=== PATIENT | female | born 1985 | race Two or more races ===

== ENCOUNTER 2018-01-24 09:35 | Emergency (ER) | payer SELFPAY ==
--- NOTE | 2018-01-24 09:45 | DR.SOBA ---
HPI - Time Seen Time seen: 09:40 - Complaints Chief Complaint Doctors Comments: SOB x 2 days. She has non-productive cough but no fever. There is right sided pleuritic chest pain. There is no anterior or pressure type chest pain. She had a dilatation and curretage done 3 days ago. There is only residual vaginal spotting now. - Reviewed Nurses Notes Reviewed: Yes - Source History Provided: Patient, Family Member, Friend - Context Onset:: At Rest PE Risk Factors:: Recent Surgery Currently on:: Neither Prehospital Care:: None - Modifying Factors Worsens:: Nothing - Associated Signs and Symptoms Associated Signs and Symptoms: Cough - If Chest Pain Quality: Sharp Location: Right Lower Chest - If Cough Cough: Nonproductive ROS - Review of Systems Constitutional: No Symptoms Reported Eyes: No Symptoms Reported ENTM: No Symptoms Reported Respiratoy: Non-Productive Cough, Short of Breath Cardiovascular: No Symptoms Reported Gastrointestinal/Abdominal: No Symptoms Reported Genitourinary: No Symptoms Reported Neurological: No Symptoms Reported Musculoskeletal: No Symptoms Reported Integumentary: No Symptoms Reported Hematologic/Lymphatic: No Symptoms Reported Endocrine: No Symptoms Reported Psychiatric: No Symptoms Reported All Other Systems: Reviewed and Negative PE - Vital Signs Vitals: Temperature 99.8 F Pulse Rate [Apical] 124 Pulse Rate 127 Respiratory Rate 36 Blood Pressure [Left Arm] 102/59 Blood Pressure 106/74 O2 Sat by Pulse Oximetry 93 - General Limitations: No Limitations General Appearance: Alert, In No Apparent Distress - Head Head Exam: Normal Inspection - Eyes Eye exam: Normal Appearance, PERRL, EOMI - ENT ENT Exam: Normal Exam - Neck Neck Exam: Normal Inspection - Chest Chest Inspection: Normal Inspection, Symmetric Chest Wall Rise - Respiratory Respiratory Exam: Normal Lung Sounds Bilat - Cardiovascular Cardiovascular Exam: Tachycardia, Normal Heart Sounds, +S1, +S2 - Abdominal Exam Abdominal Exam: Normal Inspection, Normal Bowel Sounds, Soft, Distention ( moderate). negative: Tenderness, Guarding, Rebound, Rigidity, Dimnished Bowel Sounds, Hyperactive Bowel Sounds, Hypoactive Bowel Sounds, Organomegaly, Trauma , Incision, Ascites, Hernia - Extremities Extremities Exam: Normal Inspection, Full ROM, Normal Capillary Refill. negative: Tenderness, Edema, Joint Swelling, Calf Tenderness - Back Back Exam: Normal Inspection - Neurologic Neurological Exam: Alert - Psychiatric Psychiatric Exam: Normal Affect, Normal Mood - Skin Skin Exam: Rash (radha-umbilical) ROR - Labs Reviewed Result Diagrams: 01/24/18 09:40 01/24/18 09:40 Laboratory: WBC 4.2 X10^3/uL (3.6-10.0) 01/24/18 09:40 RBC 2.98 X10^6/uL (3.5-5.4) L 01/24/18 09:40 Hgb 10.1 g/dL (12.0-16.0) L 01/24/18 09:40 Hct 29.2 % (36.0-47.0) L 01/24/18 09:40 MCV 98.1 fL (80.0-100.0) 01/24/18 09:40 MCH 33.8 pg (27.0-34.0) 01/24/18 09:40 MCHC 34.5 g/dL (33.0-35.0) 01/24/18 09:40 RDW 14.5 % (11.6-16.5) 01/24/18 09:40 Plt Count 192 X10^3/uL (150.0-450.0) 01/24/18 09:40 Plt Count Comment Adequate (ADEQUATE) 01/24/18 09:40 MPV 8.0 fL (7.4-11.0) 01/24/18 09:40 Neut % (Auto) 92.2 % (42.0-75.0) H 01/24/18 09:40 Lymph % (Auto) 4.2 % (21.0-51.0) L 01/24/18 09:40 [place] % (Auto) 3.4 % (0.0-13.0) 01/24/18 09:40 Eos % (Auto) 0.1 % (0.9-2.9) L 01/24/18 09:40 Baso % (Auto) 0.1 % (0.2-1.0) L 01/24/18 09:40 Neut # (Auto) 3.9 x10^3/uL (2.2-4.8) 01/24/18 09:40 Lymph # (Auto) 0.2 X10^3/uL (1.3-2.9) L 01/24/18 09:40 [place] # (Auto) 0.1 x10^3/uL (0.3-0.8) L 01/24/18 09:40 Eos # (Auto) 0.0 x10^3/uL (0.0-0.2) 01/24/18 09:40 Baso # (Auto) 0.0 X10^3/uL (0.0-0.1) 01/24/18 09:40 Absolute Nucleated RBC 0.2 /100WBC 01/24/18 09:40 Total Counted 100 01/24/18 09:40 Neutrophils % (Manual) 60 % (39-76) 01/24/18 09:40 Band Neutrophils % 22 % (0-10) H 01/24/18 09:40 Lymphocytes % (Manual) 10 % (13-43) L 01/24/18 09:40 Monocytes % (Manual) 6 % (4-9) 01/24/18 09:40 Atypical Lymphocytes 2 01/24/18 09:40 Plt Morphology Comment Normal (NORMAL) 01/24/18 09:40 RBC Morphology Normal (NORMAL) 01/24/18 09:40 D-Dimer 3050 ng/mL (0-400) H* 01/24/18 09:40 Sample Site Rr 01/24/18 10:40 ABG pH 7.260 (7.35-7.45) L 01/24/18 10:40 ABG pCO2 31.0 mmHg (35.0-45.0) L 01/24/18 10:40 ABG pO2 68.0 mmHg (80.0-100.0) L 01/24/18 10:40 ABG HCO3 13.9 mmol/L (22-26) L* 01/24/18 10:40 ABG O2 Saturation 90.0 % (90-100) 01/24/18 10:40 ABG Base Excess -12.0 mmol/L (-2.0-2.0) L 01/24/18 10:40 Alejandro Test Pos 01/24/18 10:40 A-a Gradient 93.0 mmHg 01/24/18 10:40 FiO2 28.000 01/24/18 10:40 Blood Gas Comments Pt kady well. cdn 01/24/18 10:40 Sodium 128 mmol/L (136-145) L 01/24/18 09:40 Corrected Sodium TNP 01/24/18 09:40 Potassium 3.8 mmol/L (3.5-5.1) 01/24/18 09:40 Chloride 93 mmol/L (98-107) L 01/24/18 09:40 Carbon Dioxide 15.2 mmol/L (21-32) L 01/24/18 09:40 BUN 97 mg/dL (7-18) H 01/24/18 09:40 Creatinine 5.48 mg/dL (0.55-1.02) H 01/24/18 09:40 Est GFR (MDRD) Af Amer 11 (>60) L 01/24/18 09:40 Est GFR (MDRD) Non-Af 9 (>60) L 01/24/18 09:40 Glucose 94 mg/dL (65-99) 01/24/18 09:40 Lactic Acid 2.2 mmol/L (0.4-2.0) H 01/24/18 10:30 Calcium 7.6 mg/dL (8.5-10.1) L 01/24/18 09:40 Corrected Calcium 9.5 mg/dL (8.5-10.1) 01/24/18 09:40 Total Bilirubin 3.30 mg/dL (0.2-1.0) H 01/24/18 09:40 AST 129 Units/L (15-37) H 01/24/18 09:40 ALT 35 Units/L (12-78) 01/24/18 09:40 Alkaline Phosphatase 92 Units/L (46-116) 01/24/18 09:40 Creatine Kinase 709 Units/L (26-192) H 01/24/18 09:40 CK-MB (CK-2) 15.1 ng/mL (0-4.0) H* 01/24/18 09:40 CK/CKMB % Calc 2.1 % (<4) 01/24/18 09:40 Troponin I < 0.02 ng/mL (0-1.5) 01/24/18 09:40 Total Protein 6.3 g/dL (6.4-8.2) L 01/24/18 09:40 Albumin 1.6 g/dL (3.4-5.0) L 01/24/18 09:40 Globulin 4.7 g/dL (2.5-4.5) H 01/24/18 09:40 Albumin/Globulin Ratio 0.3 Ratio (1.1-2.1) L 01/24/18 09:40 Specimen Type Catherized urine 01/24/18 10:40 Urine Color [place] (YELLOW) 01/24/18 10:40 Urine Appearance Cloudy (CLEAR) 01/24/18 10:40 Urine pH 5.0 (5.0 - 8.0) 01/24/18 10:40 Ur Specific [place] 1.020 (1.000-1.030) 01/24/18 10:40 Urine Protein 2+ (NEGATIVE) 01/24/18 10:40 Urine Glucose (UA) Negative (NEGATIVE) 01/24/18 10:40 Urine Ketones 1+ (NEGATIVE) 01/24/18 10:40 Urine Occult Blood 3+ (NEGATIVE) 01/24/18 10:40 Urine Nitrite Positive (NEGATIVE) 01/24/18 10:40 Urine Bilirubin 2+ (NEGATIVE) 01/24/18 10:40 Urine Urobilinogen 2+ (NORMAL) 01/24/18 10:40 Ur Leukocyte Esterase 1+ (NEGATIVE) 01/24/18 10:40 - EKG Rate: 124 [place]: Normal Rhythm: ST Block: None Hypertrophy: None ST: Normal - Diagnosis Discharge Problem: ARF (acute renal failure) - Discharge Plan Condition: Stable - Follow ups/Referrals Follow ups/Referrals: Juan Jacobson [Primary Care Provider] - 3 days - Instructions
[2018-01-24] MEDS ORDERED: XOPENEX 1.25 MG/3 ML NEBULE NEB ONE ×2 (09:48→09:57)
[2018-01-24 09:53] VITALS: BMI 22.3
[2018-01-24 09:59] LABS: BASOPHILS % (AUTO) 0.1 % (0.2-1.0); EOSINOPHILS % (AUTO) 0.1 % (0.9-2.9); HEMATOCRIT 29.2 % (36.0-47.0); HEMOGLOBIN 10.1 g/dL (12.0-16.0); LYMPHOCYTES # (AUTO) 0.2 X10^3/uL (1.3-2.9); LYMPHOCYTES % (AUTO) 4.2 % (21.0-51.0); MEAN CORPUSCULAR HEMOGLOBIN 33.8 pg (27.0-34.0); MEAN CORPUSCULAR HGB CONC 34.5 g/dL (33.0-35.0); MEAN CORPUSCULAR VOLUME 98.1 fL (80.0-100.0); MONOCYTES # (AUTO) 0.1 x10^3/uL (0.3-0.8); MONOCYTES % (AUTO) 3.4 % (0.0-13.0); NEUTROPHILS # (AUTO) 3.9 x10^3/uL (2.2-4.8); NEUTROPHILS % (AUTO) 92.2 % (42.0-75.0); PLATELET COUNT 192 X10^3/uL (150.0-450.0); RED BLOOD COUNT 2.98 X10^6/uL (3.5-5.4); RED CELL DISTRIBUTION WIDTH 14.5 % (11.6-16.5); WHITE BLOOD COUNT 4.2 X10^3/uL (3.6-10.0)
[2018-01-24 10:18] LABS: BAND NEUTROPHILS % 22 % (0-10)
[2018-01-24 10:19] LABS: PLATELET MORPHOLOGY COMMENT NORMAL (NORMAL)
[2018-01-24] MEDS ORDERED: LOVENOX INJ 40 MG SYR SC ONE (10:39)
[2018-01-24 10:44] LABS: ABG HCO3 13.9 mmol/L (22-26)
[2018-01-24 10:45] LABS: ABG ALLEN TEST POS
[2018-01-24 10:47] LABS: BILIRUBIN,URINE 2+ (NEGATIVE); BLOOD/HEMOGLOBIN,URINE 3+ (NEGATIVE); GLUCOSE, URINE NEGATIVE (NEGATIVE); KETONES,URINE 1+ (NEGATIVE); LEUKOCYTE ESTERASE ,URINE 1+ (NEGATIVE); NITRITES,URINE POSITIVE (NEGATIVE); PROTEIN,URINE 2+ (NEGATIVE); UROBILINOGEN,URINE 2+ (NORMAL)
[2018-01-24 10:48] LABS: ALANINE AMINOTRANSFERASE 35 Units/L (12-78); ALBUMIN 1.6 g/dL (3.4-5.0); ALKALINE PHOSPHATASE 92 Units/L (46-116); ASPARTATE AMINO TRANSFERASE 129 Units/L (15-37); BLOOD UREA NITROGEN 97 mg/dL (7-18); CALCIUM 7.6 mg/dL (8.5-10.1); CARBON DIOXIDE 15.2 mmol/L (21-32); CHLORIDE 93 mmol/L (98-107); COR CA(FOR HYPOALB) 9.5 mg/dL (8.5-10.1); CREATINE KINASE 709 Units/L (26-192); CREATININE 5.48 mg/dL (0.55-1.02); SODIUM 128 mmol/L (136-145); TOTAL PROTEIN 6.3 g/dL (6.4-8.2); TROPONIN I < 0.02 ng/mL (0-1.5); eGFR BLACK RACES 11 (>60); eGFR NON BLACK RACES 9 (>60)
[2018-01-24 10:53] LABS: APPEARANCE,URINE CLOUDY (CLEAR); COLOR,URINE AMBER (YELLOW)
[2018-01-24 10:54] LABS: CKMB % 2.1 % (<4)
[2018-01-24 10:55] LABS: LACTIC ACID 2.2 mmol/L (0.4-2.0)
[2018-01-24 10:57] LABS: B-TYPE NATRIURETIC PEPTIDE 34.1 pg/mL (0-79)
[2018-01-24 11:00] LABS: SQUAMOUS EPITHELIAL CELL,UR MODERATE /HPF (NEGATIVE)
[2018-01-24 11:01] LABS: AMORPHOUS SEDIMENT,UR 1+ /HPF (NEGATIVE); BACTERIA,URINE 1+ /HPF (NEGATIVE); MUCUS,URINE MODERATE /HPF (NEGATIVE)
[2018-01-24] MEDS ORDERED: NS 1000 ML 1,000 ML ONE ×5 (11:04→12:32)
[2018-01-24] MEDS ORDERED: NS 1000 ML 1,000 ML IV ONE ×3 (11:15→11:16)
--- NOTE | 2018-01-24 11:30 | RAD ---
History: Dyspnea and chest pain. Exam: Single-view chest. Comparison: None available. Findings: The trachea is midline. The cardiac silhouette is in the upper limits of normal. Bibasilar airspace d isease observed which can be seen with aspiration, pneumonia, or atelectasis. Small volume left basil ar effusion also seen. The upper lung freed are clear. There is no pneumothorax or other cardiopulmo nary abnormality. The bones are stable. Impression: Bibasilar airspace disease/consolidation, as above. Small left effusion. Reported By:
[2018-01-24 11:42] LABS: CREATINE KINASE MB 15.1 ng/mL (0-4.0)
[2018-01-24] MEDS ORDERED: SODIUM BICARBONATE 8.4% INJ ADULT ONE (12:01)
[2018-01-24] MEDS ORDERED: D5 NS 1000 ML 1,000 ML IV ONE (12:02)
[2018-01-24] MEDS ORDERED: D5W 1000 ML IV 1,000 ML IV ONE (12:10)
[2018-01-24] MEDS ORDERED: SODIUM BICARBONATE 8.4% INJ ADULT IVP ONE ×2 (12:19)
[2018-01-24] MEDS ORDERED: SODIUM BICARBONATE IV ONE ×2 (12:30)
[2018-01-24] MEDS ORDERED: D5 LR IV ONE ×2 (12:30)
[2018-01-24 12:45] VITALS: BP 119/70
[2018-01-25] MEDS ORDERED: LOVENOX INJ 40 MG SYR SC ONE (10:26)
== END 2018-01-24 12:46 | disposition short-term general hospital (02) ==
LOC: ER 09:53
DX: N17.9 Acute kidney failure, unspecified (principal); J91.8 Pleural effusion in other conditions classified elsewhere; R06.02 Shortness of breath
CPT/HCPCS: 36415; 36600; 51702; 71045; 80053; 81001; 82550; 82553; 82803; 83605; 83880; 84484; 85025; 85378; 87086; 93005; 93010; 93041; 94640; 96365; 96367; 96372; 96374; 96375; 99282; 99291; 99292; A4222; A4618; A7030; J1650; J3490